=== PATIENT | male | born 1985 | race Caucasian/White ===

== ENCOUNTER 2021-01-05 08:00 | Outpatient (CLI) | payer OTHER | END 2021-01-05 15:00 | disposition home or self-care (01) | LOC: LAB 08:00 | PROVIDERS: ATTEND Emergency Medicine Pediatric Emergency Medicine | DX: Z20.828 Contact with and (suspected) exposure to other viral communicable diseases (principal) ==

== ENCOUNTER 2021-02-06 06:20 | Outpatient (CLI) | payer OTHER | END 2021-02-06 07:18 | disposition home or self-care (01) | LOC: LAB 06:20 | PROVIDERS: ATTEND Emergency Medicine Pediatric Emergency Medicine | DX: Z20.828 Contact with and (suspected) exposure to other viral communicable diseases (principal) ==

== ENCOUNTER 2021-03-13 07:10 | Outpatient (CLI) | payer OTHER | END 2021-03-13 15:00 | disposition home or self-care (01) | LOC: LAB 07:10 | PROVIDERS: ATTEND Emergency Medicine Pediatric Emergency Medicine | DX: Z03.818 Encounter for observation for suspected exposure to other biological agents ruled out (principal) ==